=== PATIENT | male | born 1945 | race Caucasian/White ===

== ENCOUNTER → 2017-04-10 10:37 | Outpatient (CLI) | payer MEDICARE, OTHER | END | disposition home or self-care (01) | LOC: D.US 10:30 | DX: M79.621 Pain in right upper arm (principal) ==

== ENCOUNTER 2017-09-27 03:43 | Emergency (ER) | payer MEDICARE, OTHER | END 2017-09-27 05:10 | LOC: D.ER 03:43 | DX: Z91.81 History of falling (principal); I10 Essential (primary) hypertension; E11.9 Type 2 diabetes mellitus without complications; G47.00 Insomnia, unspecified ==

== ENCOUNTER 2018-09-18 16:41 | Inpatient (IN) | payer MEDICARE, OTHER ==
[2018-09-18] MEDS ORDERED: BAYER CHEWABLE81 MG PO (16:59)
[2018-09-18] MEDS ORDERED: CALCIUM 500 +1 EAC3 PO (16:59)
[2018-09-18] MEDS ORDERED: REMERON15 MG PO (17:00)
[2018-09-18] MEDS ORDERED: ZOCOR40 MG PO (17:00)
[2018-09-18] MEDS ORDERED: SYNTHROID25 MCG PO (17:01)
[2018-09-18] MEDS ORDERED: FLORANEX / LACT1 TAB PO (17:02)
[2018-09-18] MEDS ORDERED: HUMULIN R100 U/ML SC (17:05)
[2018-09-18] MEDS ORDERED: GUAIFENESI100 MG/5 M PO (17:08)
[2018-09-18] MEDS ORDERED: FUROSEMIDE20 MG PO (17:09)
[2018-09-18] MEDS ORDERED: ZOFRAN4 MG PO (17:10)
[2018-09-18] MEDS ORDERED: MIRALAX17 GM PO (17:10)
[2018-09-18] MEDS ORDERED: ORA RELIEF177 ML PO (17:11)
[2018-09-18] MEDS ORDERED: COREG6.25 MG PO (18:17)
[2018-09-18] MEDS ORDERED: D-MANNOSE (18:18)
[2018-09-18] MEDS ORDERED: DULCOLAX5 MG PO (18:19)
[2018-09-18] MEDS ORDERED: NEURONTIN 300300 MG PO (18:20)
[2018-09-18] MEDS ORDERED: XARELTO15 MG PO (18:21)
[2018-09-18] MEDS ORDERED: [UNRECOGNIZED DRUG - OTHER] (18:24)
[2018-09-18 20:08] VITALS: BP 181/91
[2018-09-18 21:36] LABS: APPEARANCE TURBID (CLEAR); BILIRUBIN NEGATIVE (NEGATIVE); COLOR YELLOW (YELLOW); GLUCOSE 1000 mg/dL (NEGATIVE); KETONE NEGATIVE (NEGATIVE); NITRITE NEGATIVE (NEGATIVE); PROTEIN 2+ mg/dL (NEGATIVE); SPECIFIC GRAVITY 1.015 (1.005-1.020); UROBILINOGEN NORMAL (NORMAL); WHITE CELLS - URINE >50 /hpf (0-5)
[2018-09-18 21:37] LABS: BACTERIA MANY /hpf (NONE SEEN); RED CELLS - URINE 0-5 /hpf (0-5)
[2018-09-19 06:57] LABS: BASOPHILS 0.4 % (0-2); EOSINOPHILS 2.7 % (0-7); HEMATOCRIT 32.1 % (42.0-54.0); HEMOGLOBIN 10.6 g/dL (13.5-17.5); IMMATURE GRANULOCYTES 0.3 % (0-5); LYMPHOCYTES 10.1 % (15-50); MCH 28.6 pg (26.0-34.0); MCV 86.5 fL (80.0-100.0); MEAN PLATELET VOLUME 9.6 fL (7.4-10.4); MONOCYTES 10.2 % (2-11); NEUTROPHILS 76.3 % (40-80); PLATELET COUNT 353 10x3/uL (130-400); RBC 3.71 10x6/uL (4.20-6.10); RDW 13.8 % (11.5-14.5); WBC 10.8 10x3/uL (4.8-10.8)
[2018-09-19 07:36] LABS: ALBUMIN 2.3 g/dL (3.4-5.0); ANION GAP 15.1 mmol/L (8-16); BILIRUBIN - TOTAL 0.33 mg/dL (0.2-1.3); CALCIUM 8.6 mg/dL (8.5-10.1); CARBON DIOXIDE 24.4 mmol/L (21.0-32.0); CHOL - HDL RATIO 2.9 ratio (2.3-4.9); CREATININE - SERUM 2.5 mg/dL (0.6-1.3); LDL-HDL RATIO 1.4 ratio (1.5-3.5); POTASSIUM - SERUM 4.5 mmol/L (3.5-5.1); PROTEIN - SERUM 7.6 g/dL (6.4-8.2); THYROID STIMULATING HORMONE 2.49 uIU/mL (0.36-3.74)
[2018-09-19 08:34] VITALS: BP 125/77
[2018-09-19 08:36] VITALS: BP 125/77
[2018-09-19 19:49] VITALS: BP 167/54
[2018-09-20 07:00] VITALS: BP 105/50
[2018-09-20 07:03] LABS: ANION GAP 15.8 mmol/L (8-16); CALCIUM 8.3 mg/dL (8.5-10.1); CARBON DIOXIDE 24.1 mmol/L (21.0-32.0); CREATININE - SERUM 2.4 mg/dL (0.6-1.3); POTASSIUM - SERUM 3.9 mmol/L (3.5-5.1)
[2018-09-20 07:24] LABS: BASOPHILS 0.3 % (0-2); HEMATOCRIT 31.1 % (42.0-54.0); HEMOGLOBIN 10.3 g/dL (13.5-17.5); IMMATURE GRANULOCYTES 0.2 % (0-5); LYMPHOCYTES 13.3 % (15-50); MCH 28.4 pg (26.0-34.0); MCHC 33.1 g/dL (31.0-37.0); MCV 85.7 fL (80.0-100.0); MEAN PLATELET VOLUME 10.1 fL (7.4-10.4); MONOCYTES 11.2 % (2-11); PLATELET COUNT 333 10x3/uL (130-400); RBC 3.63 10x6/uL (4.20-6.10); RDW 13.8 % (11.5-14.5); WBC 10.1 10x3/uL (4.8-10.8)
--- NOTE | 2018-09-20 11:30 | PSY ---
PATIENT NAME:SUSANNE FOREMAN MEDICAL RECORD: [id number] : 45 LOCATION:[facility] Nicolas1123 ADMISSION DATE: 09/18/18 ACCOUNT: [id number] PSYCHIATRIC EVALUATION DATE OF EVALUATION: 09/19/18 IDENTIFYING DATA: The patient is a 73-year-old man and he is admitted to the hospital on involuntary basis. CHIEF COMPLAINT: Homicidal threats. HISTORY OF PRESENT ILLNESS: The patient has dementia and lives in a local skilled nursing. He does have a guardian, whose name is Taco Foreman. I presume that this is his son, but do not actually know that at this point. The patient, for reasons that are unknown has become very agitated and angry at the skilled nursing. He was threatening to kill other patients and the staff and was generally uncooperative. He has been refusing to take medications. He is not able to provide much in the way of useful history. PAST MEDICAL HISTORY: Significant for hypertension, diabetes, hypothyroidism and gastroesophageal reflux disease. PAST PSYCHIATRIC HISTORY: Significant for a long established diagnosis of dementia and a history of alcoholism and depression. FAMILY HISTORY: Noncontributory. ALLERGIES: No known drug allergies. CURRENT MEDICATIONS: Aspirin, calcium, Remeron, Zocor, Synthroid, Humulin, Robitussin, MiraLax, Zofran, Coreg, Dulcolax, Neurontin, and Xarelto. SOCIAL HISTORY: The patient is . He lives in a skilled nursing and he does have adult children who are involved with his care and as mentioned above, I believe it is his son who is his guardian. He has a history of alcoholism. He has been in the skilled nursing for a long time and I presume he has not obviously had an opportunity or the ability to drink since then, but he does continue to smoke cigarettes and is very focused on trying to smoke. He becomes angry when told that he cannot smoke in the hospital. MENTAL STATUS EXAMINATION: The patient is awake, alert and oriented to person and place and only partially to time and situation. He is clearly very confused and asks the same questions repeatedly and then is uncooperative and obstinate and asking even very simple or even neutrally charged questions. He clearly has impairment of his memory, concentration, and abstraction abilities. He now denies that he would seek to harm himself or others as well as psychotic symptoms. ASSETS: Supportive family members. LIABILITIES: Limited insight. DIAGNOSTIC IMPRESSION: AXIS I: 1. Senile dementia of the Alzheimer's type with behavioral disturbances. 2. History of alcohol abuse 3. Major depression, moderate severity without psychotic features. AXIS II: None. AXIS III: Hypertension, diabetes, hyperlipidemia, renal insufficiency, chronic constipation, gastroesophageal reflux disease, hypothyroidism, urinary tract infection. AXIS IV: Moderate stressors. AXIS V: Global assessment of functioning is 30. PLAN: At this time, the patient is admitted to the hospital for a comprehensive medical, psychological, and social evaluation. He will be treated with both memory enhancing and mood stabilizing medications. His long-term prognosis is guarded. TRANSINT:[id number] Voice Confirmation ID: [id number] DOCUMENT ID: [id number] CONTRERAS SANDOVAL MD at 1130 CC: [id number] DICTATION DATE: 09/19/18 1254 RAG SHREDDER: 09/19/18 1502 ADM IN [facility] [address] [place] [address]
[2018-09-20 20:27] VITALS: BP 146/74
[2018-09-21 07:00] VITALS: BP 154/59
[2018-09-21 12:12] LABS: FOLATE (FOLIC ACID) - SERUM 6.3 ng/mL (>3.0)
--- NOTE | 2018-09-21 13:53 | PN ---
PATIENT:SUSANNE FOREMAN MEDICAL RECORD: [id number] LOCATION:TR[facility] Valenzuela112 ADMISSION DATE: 09/18/18 PROGRESS NOTE DATE OF SERVICE: 09/20/2018 SUBJECTIVE: The patient's case was discussed with staff. He has no new complaint. OBJECTIVE: The patient has been angry and irritable, but not openly hostile or aggressive. He has pretty limited insight about his situation. He feels that he has been mistreated by being placed in the [facility], even though it was clear he was not able to care for himself. ASSESSMENT: No change in diagnoses. PLAN: The patient's mood is primarily angry and irritable. I am viewing this as a depressive equivalent and I am going to start him on Effexor for its antidepressant effect. He will be monitored for clinical changes associated with its use. His long-term prognosis is guarded. He wants to return to [place] and his son is wanting that to happen as well, so I am sure some arrangements can be made to achieve that. TRANSINT:[id number] Voice Confirmation ID: [id number] DOCUMENT ID: [id number] CONTRERAS SANDOVAL MD at 1353 CC: [id number] DICTATION DATE: 09/20/18 1138 RN URGENT CARE: 09/20/18 1203 ADM IN [place] [id number] [place] [address]
[2018-09-21 23:50] VITALS: BP 140/105
[2018-09-22 05:13] LABS: VITAMIN D 25 HYDROXY 17.1 ng/mL (30.0-100.0)
[2018-09-22 06:14] LABS: RAPID PLASMA REAGIN Non Reactive (Non Reactive)
[2018-09-22 08:00] VITALS: BP 169/77
--- NOTE | 2018-09-22 09:45 | PN ---
PATIENT:SUSANNE FOREMAN MEDICAL RECORD: [id number] LOCATION:TRISTAN Ley ADMISSION DATE: 09/18/18 PROGRESS NOTE DATE OF SERVICE: 09/21/2018 SUBJECTIVE: The patient's case was discussed with staff. He has no new complaint. OBJECTIVE: The patient is disorganized and severely impaired cognitively. He has been difficult for staff to manage and he indeed was quite disruptive last night and required p.r.n. medication. ASSESSMENT: No change in diagnoses. PLAN: The patient will be given Geodon at a dose of 20 mg twice daily. His long-term prognosis is guarded. TRANSINT:[id number] Voice Confirmation ID: [id number] DOCUMENT ID: [id number] CONTRERAS SANDOVAL MD at 0945 CC: [id number] DICTATION DATE: 09/21/181405 PIPE COVERER AND INSULATOR: 09/21/18 1510 ADM IN [place] [id number] [place] [address]
[2018-09-22 19:45] VITALS: BP 121/67
--- NOTE | 2018-09-23 09:10 | PN ---
PATIENT:SUSANNE FOREMAN MEDICAL RECORD: [id number] LOCATION:TRISTAN Valenzuela112 ADMISSION DATE: 09/18/18 PROGRESS NOTE DATE OF SERVICE: 09/22/2018 SUBJECTIVE: The patient's case was discussed with staff. He has no new complaint. OBJECTIVE: The patient is much calmer today. He is pleasant and reasonably interactive. ASSESSMENT: No change in diagnoses. PLAN: The patient will be maintained on current medicines. I believe the Geodon is what has calmed his behavior significantly. I have reviewed his medicines and will maintain them. The long-term discharge plan will be to get him to [place] where he has a son. The son wants him to go back to [place] and he wants to return to [place]. TRANSINT:[id number] Voice Confirmation ID: [id number] DOCUMENT ID: [id number] CONTRERAS SANDOVAL MD at 0910 CC: [id number] DICTATION DATE: 09/22/18 1030 BUS WASHER: 09/22/18 1151 ADM IN [place] [address] [place] [address]
[2018-09-23 10:17] VITALS: BP 142/62
[2018-09-23 19:41] VITALS: BP 179/59
--- NOTE | 2018-09-24 12:29 | PN ---
PATIENT:SUSANNE FOREMAN MEDICAL RECORD: [id number] LOCATION:TRISTAN Ley ADMISSION DATE: 09/18/18 PROGRESS NOTE DATE OF SERVICE: 09/23/2018 SUBJECTIVE: The patient's case was discussed with staff. He has no new complaint. OBJECTIVE: The patient is in good behavioral control with limited insight about his condition. He does tolerate his medicines well. ASSESSMENT: No change in diagnoses. PLAN: Current medicines have been reviewed and will be maintained. Long-term prognosis is guarded. TRANSINT:[id number] Voice Confirmation ID: [id number] DOCUMENT ID: [id number] CONTRERAS SANDOVAL MD at 1229 CC: [id number] DICTATION DATE: 09/23/18 09 HOUSE DESIGNER: 09/23/18 1138 ADM IN [place] [address] [place] [address]
[2018-09-24 17:02] VITALS: BP 165/66
[2018-09-24 20:00] VITALS: BP 177/62
[2018-09-25 09:42] VITALS: BP 146/42
--- NOTE | 2018-09-25 12:55 | PN ---
PATIENT:SUSANNE FOREMAN MEDICAL RECORD: [id number] LOCATION:TRISTAN Valenzuela112 ADMISSION DATE: 09/18/18 PROGRESS NOTE DATE OF SERVICE: 09/24/2018 SUBJECTIVE: The patient's case was discussed with staff. He has no new complaint. OBJECTIVE: The patient is in good behavioral control with limited insight about his condition. He does tolerate his medicines well. ASSESSMENT: No change in diagnoses. PLAN: Supportive and educational interventions were made. Long-term prognosis is guarded. TRANSINT:[id number] Voice Confirmation ID: [id number] DOCUMENT ID: [id number] CONTRERAS SANDOVAL MD at 1255 CC: [id number] DICTATION DATE: 09/24/18 1243 ELECTRICAL CONTROLS ASSEMBLER: 09/24/18 1402 ADM IN [place] [id number] [place] [id number]
[2018-09-25 19:52] VITALS: BP 147/55
--- NOTE | 2018-09-26 08:46 | PN ---
PATIENT:SUSANNE FOREMAN MEDICAL RECORD: [id number] LOCATION:TRISTAN Valenzuela112 ADMISSION DATE: 09/18/18 PROGRESS NOTE DATE OF SERVICE: 09/25/2018 SUBJECTIVE: The patient's case was discussed with staff. He has no new complaint. OBJECTIVE: The patient denies intent to harm himself or others. He generally tolerates his medicines well. ASSESSMENT: No change in diagnoses. PLAN: Current medicines have been reviewed and will be maintained. I am, however, going to increase the dose of the Namenda to 5 mg twice daily. Namenda is being used to treat his underlying cognitive impairment. He will be monitored for clinical changes associated with its use. The family is wanting him return to [place] and there is a fair amount of complexity in achieving this, but I think by the time it is arranged, he will be clinically safe to travel. TRANSINT:[id number] Voice Confirmation ID: [id number] DOCUMENT ID: [id number] CONTRERAS SANDOVAL MD at 0846 CC: [id number] DICTATION DATE: 09/25/18 1313 PROPOSAL COORDINATOR: 09/25/18 1647 ADM IN [facility] [address] [place] [address]
[2018-09-26 09:51] VITALS: BP 130/86
[2018-09-26 10:10] VITALS: BP 130/86
[2018-09-26 19:00] VITALS: BP 136/76
[2018-09-27 07:00] VITALS: BP 197/67
--- NOTE | 2018-09-27 11:30 | PN ---
PATIENT:SUSANNE FOREMAN MEDICAL RECORD: [id number] LOCATION:TRISTAN Ley ADMISSION DATE: 09/18/18 PROGRESS NOTE DATE OF SERVICE: 09/26/2018 SUBJECTIVE: The patient's case was discussed with staff. He has no new complaint. OBJECTIVE: The patient is in good behavioral control with limited insight about his condition. He does tolerate his medicines well. ASSESSMENT: No change in diagnoses. PLAN: Current medicines and therapies have been reviewed and will be maintained. Long-term prognosis is guarded. TRANSINT:[id number] Voice Confirmation ID: [id number] DOCUMENT ID: [id number] CONTRERAS SANDOVAL MD at 1130 CC: [id number] DICTATION DATE: 09/26/18 1005 TRAVEL ACCOMMODATION INSPECTOR: 09/26/18 1156 ADM IN [facility] [address] [place] [address]
[2018-09-27 12:44] LABS: ANION GAP 13.5 mmol/L (8-16); CALCIUM 8.7 mg/dL (8.5-10.1); CARBON DIOXIDE 27.5 mmol/L (21.0-32.0); CREATININE - SERUM 2.3 mg/dL (0.6-1.3)
[2018-09-27 20:12] VITALS: BP 214/75
[2018-09-27 22:42] VITALS: BP 136/50
[2018-09-28 07:00] VITALS: BP 138/78
--- NOTE | 2018-09-28 09:41 | PN ---
PATIENT:SUSANNE FOREMAN MEDICAL RECORD: [id number] LOCATION:TRISTAN SaavedraHolliShannon ADMISSION DATE: 09/18/18 PROGRESS NOTE DATE OF SERVICE: 09/27/2018 SUBJECTIVE: The patient's case was discussed with staff. He has no new complaint. He ate well yesterday, but did not sleep very well. He did require some p.r.n. medication for agitation last night. ASSESSMENT: No change in diagnoses. PLAN: The patient is going to be given trazodone at a dose of 100 mg at bedtime to assist with sleep consolidation. His long-term prognosis is guarded. TRANSINT:[id number] Voice Confirmation ID: [id number] DOCUMENT ID: [id number] CONTRERAS SANDOVAL MD at 0941 CC: [id number] DICTATION DATE: 09/27/18 1136 MANAGEMENT TECHNICIAN: 09/27/18 1523 ADM IN [facility] [address] [place] [address]
[2018-09-28 09:57] LABS: CALCIUM 8.9 mg/dL (8.5-10.1); CARBON DIOXIDE 28.2 mmol/L (21.0-32.0); CREATININE - SERUM 2.1 mg/dL (0.6-1.3)
[2018-09-28 10:01] LABS: POTASSIUM - SERUM 7.2 mmol/L (3.5-5.1)
[2018-09-28 21:59] VITALS: BP 104/60
[2018-09-29 08:00] VITALS: BP 182/73
--- NOTE | 2018-09-29 09:43 | PN ---
PATIENT:SUSANNE FOREMAN MEDICAL RECORD: [id number] LOCATION:TRISTAN Ley ADMISSION DATE: 09/18/18 PROGRESS NOTE DATE OF SERVICE: 09/28/2018 SUBJECTIVE: The patient's case was discussed with staff. He has no new complaint. OBJECTIVE: The patient denies intent to harm himself or others. He is tolerating his medicines well. ASSESSMENT: No change in diagnoses. PLAN: Brief supportive and educational interventions were made. Long-term prognosis is guarded. TRANSINT:[id number] Voice Confirmation ID: [id number] DOCUMENT ID: [id number] CONTRERAS SANDOVAL MD at 0943 CC: [id number] DICTATION DATE: 09/28/18 1031 COLLECTIVE BARGAINING SPECIALIST: 09/28/18 1057 ADM IN [place] [address] [place] [id number]
[2018-09-29 10:20] LABS: ALBUMIN 2.4 g/dL (3.4-5.0); ANION GAP 13.8 mmol/L (8-16); BILIRUBIN - TOTAL 0.12 mg/dL (0.2-1.3); CALCIUM 8.4 mg/dL (8.5-10.1); CARBON DIOXIDE 27.3 mmol/L (21.0-32.0); CREATININE - SERUM 2.4 mg/dL (0.6-1.3); PROTEIN - SERUM 7.6 g/dL (6.4-8.2)
[2018-09-29 10:25] LABS: POTASSIUM - SERUM 6.1 mmol/L (3.5-5.1)
[2018-09-29 21:00] VITALS: BP 199/76
[2018-09-30 06:07] LABS: ANION GAP 13.5 mmol/L (8-16); CALCIUM 8.4 mg/dL (8.5-10.1); CARBON DIOXIDE 27.2 mmol/L (21.0-32.0); CREATININE - SERUM 2.3 mg/dL (0.6-1.3)
[2018-09-30 06:10] LABS: POTASSIUM - SERUM 4.7 mmol/L (3.5-5.1)
[2018-09-30 08:00] VITALS: BP 197/73
--- NOTE | 2018-09-30 15:07 | PN ---
PATIENT:SUSANNE FOREMAN MEDICAL RECORD: [id number] LOCATION:TRISTAN Ley ADMISSION DATE: 09/18/18 PROGRESS NOTE DATE OF SERVICE: 09/29/2018 SUBJECTIVE: The patient's case was discussed with staff. He has no new complaint. OBJECTIVE: The patient denies intent to harm himself or others. He is tolerating his medications well. He was a little sedated this morning. I am going to stop his trazodone. Other medicines will be continued. TRANSINT:[id number] Voice Confirmation ID: [id number] DOCUMENT ID: [id number] CONTRERAS SANDOVAL MD at 1507 CC: [id number] DICTATION DATE: 09/29/18 0955 CARE NURSE RN: 09/29/18 1007 ADM IN [place] [id number] [place] [id number]
[2018-09-30 19:25] VITALS: BP 218/72
[2018-10-01 10:19] VITALS: BP 173/75
--- NOTE | 2018-10-01 14:21 | PN ---
PATIENT:SUSANNE FOREMAN MEDICAL RECORD: [id number] LOCATION:TRISTAN Ley ADMISSION DATE: 09/18/18 PROGRESS NOTE DATE OF SERVICE: 09/30/2018 SUBJECTIVE: The patient's case was discussed with staff. He has no new complaint. OBJECTIVE: The patient is in good behavioral control with limited insight about his condition. He does tolerate his medicines well. ASSESSMENT: No change in diagnoses. PLAN: Brief supportive and educational interventions were made. Long-term prognosis is guarded. TRANSINT:[id number] Voice Confirmation ID: [id number] DOCUMENT ID: [id number] CONTRERAS SANDOVAL MD at 1421 CC: [id number] DICTATION DATE: 09/30/18 1516 FOOD COUNTER WORKER: 09/30/18 1635 ADM IN [place] [id number] [place] [address]
[2018-10-01 20:05] VITALS: BP 119/50
[2018-10-02 08:39] VITALS: BP 144/59
[2018-10-02 14:34] LABS: ANION GAP 12.6 mmol/L (8-16); CALCIUM 8.6 mg/dL (8.5-10.1); CARBON DIOXIDE 27.3 mmol/L (21.0-32.0); CREATININE - SERUM 2.3 mg/dL (0.6-1.3); POTASSIUM - SERUM 5.9 mmol/L (3.5-5.1)
--- NOTE | 2018-10-02 15:29 | PN ---
PATIENT:SUSANNE FOREMAN MEDICAL RECORD: [id number] LOCATION:TRISTAN Valenzuela112 ADMISSION DATE: 09/18/18 PROGRESS NOTE DATE OF SERVICE: 10/01/2018 SUBJECTIVE: The patient's case was discussed with staff. He has no new complaint. OBJECTIVE: The patient is eating and sleeping reasonably well. He has no thoughts of harming himself or others. ASSESSMENT: No change in diagnoses. PLAN: Current medicines have been reviewed and will be maintained. Long-term prognosis is guarded. Supportive and educational interventions were made. The patient is going to return to [place] to be with his son. TRANSINT:[id number] Voice Confirmation ID: [id number] DOCUMENT ID: [id number] CONTRERAS SANDOVAL MD at 1529 CC: [id number] DICTATION DATE: 10/01/18 1435 CEMENT MIXER DRIVER: 10/01/18 1442 ADM IN [facility] [address] [place] [address]
[2018-10-02 19:46] VITALS: BP 174/66
[2018-10-03 08:00] VITALS: BP 158/77
[2018-10-03 21:16] VITALS: BP 180/93
[2018-10-04 08:00] VITALS: BP 199/84
--- NOTE | 2018-10-04 11:13 | PN ---
PATIENT:SUSANNE FOREMAN MEDICAL RECORD: [id number] LOCATION:TRISTAN Valenzuela112 ADMISSION DATE: 09/18/18 PROGRESS NOTE DATE OF SERVICE: 10/02/2018 SUBJECTIVE: The patient's case was discussed with staff. He has no new complaint. OBJECTIVE: The patient is in good behavioral control with limited insight about his condition. He tolerates his medicines well. ASSESSMENT: No change in diagnoses. PLAN: Brief supportive and educational interventions were made. Long-term prognosis is guarded. I anticipate he can be transitioned out of the hospital soon if this level of improvement continues. TRANSINT:[id number] Voice Confirmation ID: [id number] DOCUMENT ID: [id number] CONTRERAS SANDOVAL MD at 1113 CC: [id number] DICTATION DATE: 10/02/18 1544 DIRECTOR OF GUIDANCE: 10/02/18 2320 ADM IN [place] [id number] [place] [id number]
[2018-10-04 14:35] LABS: BASOPHILS 0.3 % (0-2); EOSINOPHILS 2.7 % (0-7); HEMATOCRIT 27.9 % (42.0-54.0); HEMOGLOBIN 8.8 g/dL (13.5-17.5); IMMATURE GRANULOCYTES 0.3 % (0-5); LYMPHOCYTES 10.6 % (15-50); MCH 27.8 pg (26.0-34.0); MCHC 31.5 g/dL (31.0-37.0); MEAN PLATELET VOLUME 9.6 fL (7.4-10.4); MONOCYTES 7.7 % (2-11); NEUTROPHILS 78.4 % (40-80); PLATELET COUNT 301 10x3/uL (130-400); RBC 3.17 10x6/uL (4.20-6.10); RDW 14.8 % (11.5-14.5); WBC 11.6 10x3/uL (4.8-10.8)
[2018-10-04 15:03] LABS: ALBUMIN 2.2 g/dL (3.4-5.0); ANION GAP 18.3 mmol/L (8-16); BILIRUBIN - TOTAL 0.29 mg/dL (0.2-1.3); CALCIUM 8.4 mg/dL (8.5-10.1); CARBON DIOXIDE 24.8 mmol/L (21.0-32.0); CREATININE - SERUM 2.2 mg/dL (0.6-1.3); POTASSIUM - SERUM 5.1 mmol/L (3.5-5.1); PROTEIN - SERUM 6.5 g/dL (6.4-8.2)
[2018-10-04 22:06] VITALS: BP 130/72
[2018-10-05 10:28] VITALS: BP 173/81
--- NOTE | 2018-10-05 13:23 | PN ---
PATIENT:SUSANNE FOREMAN MEDICAL RECORD: [id number] LOCATION:TRISTAN Valenzuela112 ADMISSION DATE: 09/18/18 PROGRESS NOTE DATE OF SERVICE: 10/03/2018 SUBJECTIVE: The patient's case was discussed with staff. He has no new complaint. OBJECTIVE: The patient is in good behavioral control with limited insight about his condition. He does tolerate his medicines well. He denies that he would seek to harm himself or others. ASSESSMENT: No change in diagnoses. PLAN: The patient received a p.r.n. of Haldol and Ativan last night because of agitation. He has no recollection of what happened and it is not really practical to try to process the event with him because of his impairment in memory. He is calm, polite, and euthymic today. I am having a difficult time processing what is precipitating these events which makes it difficult for me to try to interrupt them. The behavior outbursts that he has are severe. The fact when he was first admitted to the hospital here, I personally witnessed it over the first couple of days before he started to show real improvement. When he is not agitated, he is impaired cognitively, but perfectly polite, appropriate, and easy going. Right now, I do not think the answer is going to be significant pharmacologic changes, but probably environmental. I will discuss this with the treatment team about how we can improve his functioning here. TRANSINT:[id number] Voice Confirmation ID: [id number] DOCUMENT ID: [id number] CONTRERAS SANDOVAL MD at 1323 CC: [id number] DICTATION DATE: 10/03/18 1456 STROKE PROGRAM COORDINATOR: 10/03/18 1937 ADM IN [facility] [address] [place] [id number]
--- NOTE | 2018-10-05 13:23 | PN ---
PATIENT:SUSANNE FOREMAN MEDICAL RECORD: [id number] LOCATION:TRISTAN Ley ADMISSION DATE: 09/18/18 PROGRESS NOTE DATE OF SERVICE: 10/04/2018 SUBJECTIVE: The patient's case was discussed with staff. He has no new complaint. OBJECTIVE: The patient is in good behavioral control with limited insight about his condition. He does tolerate his medicines well. He was fairly labile this morning, but is calmer now. He would not take his medications this morning, but now cannot give me an explanation as to why. ASSESSMENT: No change in diagnoses. PLAN: Brief supportive and educational interventions were made. Long-term prognosis is guarded. TRANSINT:[id number] Voice Confirmation ID: [id number] DOCUMENT ID: [id number] CONTRERAS SANDOVAL MD at 1323 CC: [id number] DICTATION DATE: 10/04/18 1114 ROADS AND PARKING LOTS SWEEPER OPERATOR: 10/04/18 1522 ADM IN [facility] [address] [place] [address]
[2018-10-05 20:40] VITALS: BP 192/67
--- NOTE | 2018-10-06 10:58 | PN ---
PATIENT:SUSANNE FOREMAN MEDICAL RECORD: [id number] LOCATION:TRISTAN Ley ADMISSION DATE: 09/18/18 PROGRESS NOTE DATE OF SERVICE: 10/05/2018 SUBJECTIVE: The patient's case was discussed with staff. He has no new complaint. OBJECTIVE: The patient is in good behavioral control today. He has limited insight about his condition. He generally tolerates his medicines well. ASSESSMENT: No change in diagnoses. PLAN: Supportive and educational interventions were made. Long-term prognosis is guarded. TRANSINT:[id number] Voice Confirmation ID: [id number] DOCUMENT ID: [id number] CONTRERAS SANDOVAL MD at 1058 CC: [id number] DICTATION DATE: 10/05/18 1340 CUSTOM GARMENT DESIGNER: 10/05/18 1711 ADM IN [place] [id number] [place] [address]
[2018-10-06 11:27] VITALS: BP 198/66
[2018-10-06] MEDS ORDERED: Nicoderm [PBKC] TRANSDERM (12:09)
[2018-10-06] MEDS ORDERED: HYDRALAZINE HCL10 MG PO (12:10)
[2018-10-06] MEDS ORDERED: VOLTAREN100 GM TOPICAL (12:10)
[2018-10-06] MEDS ORDERED: COREG12.5 MG PO (12:10)
[2018-10-06] MEDS ORDERED: GEODON20 MG PO (12:11)
[2018-10-06] MEDS ORDERED: EFFEXOR50 MG PO (12:11)
[2018-10-06] MEDS ORDERED: NAMENDA5 MG PO (12:11)
[2018-10-06] MEDS ORDERED: FLORAJEN3 CAPS460 MG PO (12:12)
[2018-10-06] MEDS ORDERED: BETAMETHASONE DIPROPIONATE 0.05% TOPICAL (12:12)
[2018-10-06] MEDS ORDERED: Lantus Solostar PEN SC (12:12)
[2018-10-06] MEDS ORDERED: VITAMIN D5000 UNIT PO (12:12)
[2018-10-06 19:24] VITALS: BP 175/83
[2018-10-07 08:00] VITALS: BP 168/57
[2018-10-07 08:57] LABS: BASOPHILS 0.4 % (0-2); EOSINOPHILS 6.5 % (0-7); HEMATOCRIT 27.1 % (42.0-54.0); HEMOGLOBIN 8.9 g/dL (13.5-17.5); IMMATURE GRANULOCYTES 0.2 % (0-5); LYMPHOCYTES 12.9 % (15-50); MCH 28.6 pg (26.0-34.0); MCHC 32.8 g/dL (31.0-37.0); MCV 87.1 fL (80.0-100.0); MONOCYTES 6.4 % (2-11); NEUTROPHILS 73.6 % (40-80); PLATELET COUNT 349 10x3/uL (130-400); RBC 3.11 10x6/uL (4.20-6.10); RDW 14.6 % (11.5-14.5); WBC 9.4 10x3/uL (4.8-10.8)
[2018-10-07 09:06] LABS: ANION GAP 15.5 mmol/L (8-16); CALCIUM 8.8 mg/dL (8.5-10.1); CARBON DIOXIDE 25.6 mmol/L (21.0-32.0); CREATININE - SERUM 2.3 mg/dL (0.6-1.3); POTASSIUM - SERUM 5.1 mmol/L (3.5-5.1)
--- NOTE | 2018-10-07 17:30 | PN ---
PATIENT:SUSANNE FOREMAN MEDICAL RECORD: [id number] LOCATION:TRISTAN Ley ADMISSION DATE: 09/18/18 PROGRESS NOTE DATE OF SERVICE: 10/06/2018 SUBJECTIVE: The patient's case was discussed with staff. He has no new complaint. OBJECTIVE: The patient is in good behavioral control with limited insight about his condition. He has not been aggressive. The patient is not showing any aggressive behaviors. ASSESSMENT: No change in diagnoses. PLAN: The patient will be returned to the [facility] tomorrow. His long-term prognosis is guarded. Supportive and educational interventions were made. The patient's son is going to have him fly to [place] on Friday of this week with a caregiver in attendance. The patient's son has made arrangement for care and followup in [place]. TRANSINT:[id number] Voice Confirmation ID: [id number] DOCUMENT ID: [id number] CONTRERAS SANDOVAL MD at 1730 CC: [id number] DICTATION DATE: 10/06/18 1208 CREDIT REFERENCE CLERK: 10/06/18 2155 DIS IN 10/07/18 [facility] [address] [place] [address]
--- NOTE | 2018-10-10 12:34 | DS ---
PATIENT:SUSANNE FOREMAN :45 MEDICAL RECORD: [id number] DISCHARGE SUMMARY ADMISSION DATE: 09/18/18 DISCHARGE DATE: 10/07/18 IDENTIFYING DATA: The patient is 73 years old and he was admitted to the hospital on a voluntary basis because of homicidal threats. The patient has a known history of dementia and lives in a local senior living. He does have a guardian, and I believe that the guardian is his son. The patient, for reasons that are unknown and that he can neither remember or explain became very angry and agitated at the senior living. He was threatening to kill other patients and staff members and was generally uncooperative. Leading up to this for several days, he has been refusing to take medications. HOSPITAL COURSE: The patient was admitted to the hospital and fully evaluated from both a medical, psychological, and social standpoint. He was found to have an advanced dementia and was unable to explain the reasoning behind his agitation. The initial portion of his hospitalization he was extremely agitated, violent and combative with this nursing staff, hitting, kicking, biting and threatening others. With some medication changes, he calmed and with other medication changes, he calmed significantly without being over sedated. He is a [place] . I am not sure if this is related to posttraumatic stress or some other underlying process. I probably will never really know, but he did improve with the combination of memory enhancing, mood stabilizing, and antipsychotic medications. He was subsequently transitioned back to the senior living. DISCHARGE DIAGNOSES: AXIS I: Senile dementia of the Alzheimer's type with behavioral disturbances. Major depression, moderate severity, without psychotic features. History of alcohol abuse. AXIS II: None. AXIS III: Hypertension, diabetes, hyperlipidemia, renal insufficiency, chronic constipation, gastroesophageal reflux disease, hypothyroidism, urinary tract infection. AXIS IV: Moderate stressors. AXIS V: Global assessment of functioning is 35. PLAN: At the time of discharge, the patient had a euthymic mood. No evidence of sedation and no evidence of acute dangerousness to himself or others. He was severely impaired with his cognition only being partially oriented and having limited short-term memory along with impairment of even many of his long-term recollection skills. He is going to return to the senior living for a few days. His son, who is his guardian and lives in [place], has made arrangements for him to fly to [place]. There will be a caregiver to assist the patient the entire way and once in [place], the son has made arrangement for him to live in a nursing facility there and have followup care from a physician in [place]. TRANSINT:[id number] Voice Confirmation ID: [id number] DOCUMENT ID: [id number] DISCHARGE SUMMARY REPORT [id number] SUSANNE FOREMAN, CONTRERAS ESPINOSA at 1234 CC: [id number] DICTATION DATE: 10/08/18 1507 VICTORIAN LITERATURE PROFESSOR: 10/09/18 0727 DIS IN 10/07/18 [place] [id number] [place] [address]
== END 2018-10-07 14:00 | DRG 57 ==
LOC: D.PSYCH 16:41
PROVIDERS: Family Medicine; ADMIT Psychiatry & Neurology Psychiatry
DX: G30.1 Alzheimer's disease with late onset (principal); F02.81 Dementia in other diseases classified elsewhere, unspecified severity, with behavioral disturbance; F01.51 Vascular dementia, unspecified severity, with behavioral disturbance; I69.354 Hemiplegia and hemiparesis following cerebral infarction affecting left non-dominant side; F32.1 Major depressive disorder, single episode, moderate; N39.0 Urinary tract infection, site not specified; I69.319 Unspecified symptoms and signs involving cognitive functions following cerebral infarction; M19.90 Unspecified osteoarthritis, unspecified site; E55.9 Vitamin D deficiency, unspecified; E11.22 Type 2 diabetes mellitus with diabetic chronic kidney disease; I12.9 Hypertensive chronic kidney disease with stage 1 through stage 4 chronic kidney disease, or unspecified chronic kidney disease; N18.9 Chronic kidney disease, unspecified; K21.9 Gastro-esophageal reflux disease without esophagitis; E78.5 Hyperlipidemia, unspecified; K59.09 Other constipation; E03.9 Hypothyroidism, unspecified; Z72.0 Tobacco use